=== PATIENT | male | born 1950 | race Caucasian/White ===

== ENCOUNTER 2023-08-14 13:26 | Outpatient (CLI) | payer OTHER, MEDICARE | END 2023-08-14 20:16 | disposition home or self-care (01) | LOC: SCA 13:26 | PROVIDERS: ATTEND Internal Medicine Cardiovascular Disease | DX: I08.0 Rheumatic disorders of both mitral and aortic valves (principal); R07.9 Chest pain, unspecified; R00.2 Palpitations | CPT/HCPCS: 71046-TC; 93306 ==